=== PATIENT | female | born 1985 | race Caucasian/White ===

== ENCOUNTER 2017-07-14 14:27 | Inpatient (IN) | payer MEDICAID ==
--- NOTE | 2017-07-14 17:30 | ED Physician Chart ---
ED Chief Complaint/HPI - Patient Information Date Seen:: 07/14/17 Chief Complaint:: had baby now abdominal pain Allergies:: Allergies Allergy/AdvReac Type Severity Reaction Status Date / Time quetiapine [From Seroquel] Allergy Verified 07/14/17 14:40 Vitals:: Vital Signs - 8 hr 07/14/17 14:41 Temp 98.6 F HR 91 RR 17 BP 133/81 O2 Sat % 96 Review:: Nurse's Note Reviewed <Kali Pereyra - Last Filed: 07/14/17 17:43> - Patient Information Allergies:: Allergies Allergy/AdvReac Type Severity Reaction Status Date / Time quetiapine [From Seroquel] Allergy Verified 07/14/17 14:40 Vitals:: Vital Signs - 8 hr 07/14/17 14:41 Temp 98.6 F HR 91 RR 17 BP 133/81 O2 Sat % 96 <Tremaine Darling - Last Filed: 07/14/17 22:10> ED Review of Systems - Review of Systems General/Constitutional: No fever <Kali Pereyra - Last Filed: 07/14/17 17:43> ED Past Medical History - Past Medical History Obtainable: No <Kali Pereyra - Last Filed: 07/14/17 17:43> ED Physical Exam - Physical Examination General/Constitutional: Alert, Non-toxic appearing Head: Atraumatic Eyes: Lids, conjuctiva normal Skin: Nl inspection ENMT: External ears, nose nl Neck: Nontender Respiratory: Nl effort/Exclusion Cardio Vascular: RRR GI: No tenderness/rebounding/guarding : No CVA tenderness Extremities: No tenderness or effusion Misc: Normal back <Kali Pereyra - Last Filed: 07/14/17 17:43> ED Labs/Radiology/EKG Results - Lab Results Results: Laboratory Tests 07/14/17 07/14/17 07/14/17 15:00 17:31 17:31 WBC 16.1 H RBC 4.66 Hgb 13.2 Hct 39.3 L MCV 84.5 MCH 28.3 MCHC Differential 33.5 RDW 13.3 Plt Count 486 H MPV 6.6 Neutrophils % 83.1 H Lymphocytes % 9.4 L Monocytes % 6.2 Eosinophils % 1.3 Basophils % 0.0 Sodium 136 Potassium 4.0 Chloride 104 Carbon Dioxide 26.6 Anion Gap 9.4 BUN 18 Creatinine 0.6 Est GFR ( Amer) > 60.0 Est GFR (Non-Af Amer) > 60.0 BUN/Creatinine Ratio 30.0 Glucose 85 Whole Bld Lactic Acid Calcium 8.3 L Total Bilirubin Direct Bilirubin AST ALT Alkaline Phosphatase Total Protein Albumin Globulin Albumin/Globulin Ratio Amylase Lipase Urine Test NEGATIVE 07/14/17 07/14/17 07/14/17 17:31 17:31 17:46 WBC RBC Hgb Hct MCV MCH MCHC Differential RDW Plt Count MPV Neutrophils % Lymphocytes % Monocytes % Eosinophils % Basophils % Sodium Potassium Chloride Carbon Dioxide Anion Gap BUN Creatinine Est GFR ( Amer) Est GFR (Non-Af Amer) BUN/Creatinine Ratio Glucose Whole Bld Lactic Acid 1.02 Calcium Total Bilirubin 0.3 Direct Bilirubin 0.04 AST 12 L ALT 9 Alkaline Phosphatase 82 Total Protein 5.6 L Albumin 3.3 L Globulin 2.3 Albumin/Globulin Ratio 1.4 Amylase 43 Lipase 27 Urine Test - Radiology Results Results: CT abdomen: distended stomach, diffuse distended bowel loops with areas of bowel wall thickening, favor infectious/inflammatory process <Tremaien Darling - Last Filed: 07/14/17 22:10> ED Assessment - Assessment General Assessment: Gastritis with possible small bowel obstruction Leukocytosis day 10 Critical Care Time: 45 min Excludes all billable procedures: Yes This condition life threatening/high prob of deterioration: No Assessment/Comments:: CT abdomen: distended stomach, diffuse distended bowel loops with areas of bowel wall thickening, favor infectious/inflammatory process Goldie Martinez Admit to med surg <Tremaine Darling - Last Filed: 07/14/17 22:10> ED Septic Shock - . Is Septic Shock (SBP<90, OR Lactate>4 mmol\L) present?: No - <6hrs of presentation: Vital Signs: Vital Signs - 8 hr 07/14/17 14:41 Temp 98.6 F HR 91 RR 17 BP 133/81 O2 Sat % 96 <Kali Pereyra - Last Filed: 07/14/17 17:43> - . Is Septic Shock (SBP<90, OR Lactate>4 mmol\L) present?: No - <6hrs of presentation: Vital Signs: Vital Signs - 8 hr 12/25/17 14:41 Temp 98.6 F HR 91 RR 17 BP 133/81 O2 Sat % 96 <Tremaine Darling - Last Filed: 07/14/17 22:10> ED Reassessment (Disposition) - Reassessment Reassessment Condition:: Improved - Patient Disposition Discharge/Transfer:: Acute Care w/in this hosp Admitting Medical Physician:: Miranda Shelton <Tremaine Darling - Last Filed: 07/14/17 22:10>
[2017-07-14 17:38] LABS: % EOSINOPHILS 1.3 % (0.0-5.0); % LYMPHOCYTES 9.4 % (20.0-50.0); % MONOCYTES 6.2 % (2.0-10.0); % NEUTROPHILS 83.1 % (40.0-80.0); EOSINOPHILE ABSOLUTE 0.2 Th/cmm (0.1-0.4); HEMATOCRIT 39.3 % (41.0-60); HEMOGLOBIN 13.2 gm/dL (12-16); LYMPHOCYTE ABSOLUTE 1.5 Th/cmm (1.5-3.0); MEAN CELL VOLUME 84.5 fl (81-100); MEAN CORPUSCULAR HEMOGLOBIN 28.3 pg (27.0-31.0); MEAN CORPUSCULAR HGB CONC 33.5 pg (28.0-36.0); MEAN PLATELET VOLUME 6.6 fl; NEUTROPHILE ABSOLUTE 13.4 Th/cmm (1.8-8.0); PLATELET COUNT 486 Th/cmm (150-400); RED BLOOD COUNT 4.66 Mil/cmm (3.80-5.10); RED CELL DISTRIBUTION WIDTH 13.3 % (11.5-20.0)
[2017-07-14 17:43] LABS: WHITE BLOOD COUNT 16.1 Th/cmm (4.8-10.8)
[2017-07-14 17:51] LABS: ANION GAP 9.4 (7.0-16.0); BUN - UREA NITROGEN 18 mg/dL (7-25); CALCIUM SERUM 8.3 mg/dL (8.6-10.3); CARBON DIOXIDE 26.6 mEq/L (21.0-31.0); CHLORIDE 104 mEq/L (98-107); CREATININE - SERUM 0.6 mg/dL (0.6-1.2); GFR AFRICAN-AMERICAN > 60.0 ml/min (>90); GFR NON AFRICAN-AMERICAN > 60.0 ml/min; GLUCOSE 85 mg/dL (70-105); SODIUM SERUM 136 mEq/L (136-145)
[2017-07-14] MEDS ORDERED: Sodium Chloride 0.9% 1,000 ML IV ONE (20:11)
[2017-07-14 20:15] LABS: AMYLASE SERUM 43 U/L (29-103); LIPASE 27 U/L (11-82)
[2017-07-14 20:19] LABS: ALB/GLOB RATIO 1.4 (1.0-1.8); ALBUMIN 3.3 gm/dL (3.7-5.3); BILIRUBIN,TOTAL 0.3 mg/dL (0.3-1.0); TOTAL PROTEIN,SERUM 5.6 gm/dL (6.0-8.3)
[2017-07-14 20:24] LABS: BILIRUBIN,DIRECT 0.04 mg/dL (0.0-0.2)
[2017-07-14] MEDS ORDERED: cefTRIAXone 1 GM in Sodium Chloride 0.9% 50 ML IV ONE (20:52)
[2017-07-14] MEDS ORDERED: Piperacillin Sodium/Tazobact 3.375 gm Vial IV ONE (20:56)
[2017-07-14] MEDS ORDERED: Levofloxacin 750mg/150mL 750 MG/150 ML BAG IV ONE (23:52)
[2017-07-14] MEDS ORDERED: D5-0.45NS w/20 mEq KCL 1,000 ML IV ONE (23:56)
[2017-07-15] MEDS: D5-0.45NS w/20 mEq KCL 1,000 ML IV SCH ×2 (00:04→15:15)
[2017-07-15] MEDS: Levofloxacin 750mg/150mL 750 MG/150 ML BAG IV SCH (00:05)
[2017-07-15] MEDS: metroNIDAZOLE 500mg/NS 100mL 500 MG/100 ML BAG IV SCH ×4 (00:21→20:51)
[2017-07-15 06:22] LABS: % BASOPHILS 0.4 % (0.0-2.0); % EOSINOPHILS 0.6 % (0.0-5.0); % MONOCYTES 8.3 % (2.0-10.0); % NEUTROPHILS 77.7 % (40.0-80.0); EOSINOPHILE ABSOLUTE 0.1 Th/cmm (0.1-0.4); HEMATOCRIT 37.1 % (41.0-60); HEMOGLOBIN 12.4 gm/dL (12-16); LYMPHOCYTE ABSOLUTE 1.5 Th/cmm (1.5-3.0); MEAN CELL VOLUME 84.8 fl (81-100); MEAN CORPUSCULAR HEMOGLOBIN 28.3 pg (27.0-31.0); MEAN CORPUSCULAR HGB CONC 33.4 pg (28.0-36.0); MEAN PLATELET VOLUME 7.2 fl; MONOCYTE ABSOLUTE 0.9 Th/cmm (0.3-1.0); NEUTROPHILE ABSOLUTE 8.7 Th/cmm (1.8-8.0); PLATELET COUNT 432 Th/cmm (150-400); RED BLOOD COUNT 4.37 Mil/cmm (3.80-5.10); RED CELL DISTRIBUTION WIDTH 13.2 % (11.5-20.0)
[2017-07-15 06:23] LABS: WHITE BLOOD COUNT 11.2 Th/cmm (4.8-10.8)
[2017-07-15 06:38] LABS: ALB/GLOB RATIO 1.2 (1.0-1.8); ALBUMIN 2.7 gm/dL (3.7-5.3); ALKALINE PHOSPHATASE 64 U/L (34-104); BILIRUBIN,TOTAL 0.3 mg/dL (0.3-1.0); BUN - UREA NITROGEN 16 mg/dL (7-25); CALCIUM SERUM 7.1 mg/dL (8.6-10.3); CARBON DIOXIDE 20.8 mEq/L (21.0-31.0); CHLORIDE 107 mEq/L (98-107); CREATININE - SERUM 0.6 mg/dL (0.6-1.2); GFR AFRICAN-AMERICAN > 60.0 ml/min (>90); GFR NON AFRICAN-AMERICAN > 60.0 ml/min; GLUCOSE 84 mg/dL (70-105); MAGNESIUM 1.5 mg/dL (1.9-2.7); POTASSIUM SERUM 3.8 mEq/L (3.5-5.1); SGOT 10 U/L (13-39); SGPT/ALT 7 U/L (7-52); SODIUM SERUM 135 mEq/L (136-145); TOTAL PROTEIN,SERUM 4.9 gm/dL (6.0-8.3)
--- NOTE | 2017-07-15 08:31 | Diagnostic Imaging Report ---
Exam: Acute abdominal series. HISTORY: Free air. Findings: Multiple views of the abdomen reviewed. The study demonstrates nonspecific bowel gas pattern. Bony structures intact. No abnormal masses or calcifications are noted. No acute pulmonic is trace appreciated. The decubitus examination of the abdomen fail to demonstrate free air collection. The study was correlated with the CT examination the abdomen at 07/14/2017 which also demonstrated no evidence of free air collection. IMPRESSION: Essentially unremarkable examination of the abdomen
--- NOTE | 2017-07-15 08:58 | General Progress Note ---
Subjective - Review of Systems Service Date: 07/15/17 Events since last encounter: had vaginal delivery first baby 10 days ago at [facility] abdominal pain, generalilzed labs noted abdominal xray: not remarkable clear liquids, GB ultrasound Objective - Results Result Diagrams: 07/15/17 05:39 07/15/17 05:39 Recent Labs: Laboratory Last Values WBC 11.2 Th/cmm (4.8-10.8) H D 07/15/17 05:39 RBC 4.37 Mil/cmm (3.80-5.10) 07/15/17 05:39 Hgb 12.4 gm/dL (12-16) 07/15/17 05:39 Hct 37.1 % (41.0-60) L 07/15/17 05:39 MCV 84.8 fl (81-100) 07/15/17 05:39 MCH 28.3 pg (27.0-31.0) 07/15/17 05:39 MCHC Differential 33.4 pg (28.0-36.0) 07/15/17 05:39 RDW 13.2 % (11.5-20.0) 07/15/17 05:39 Plt Count 432 Th/cmm (150-400) H 07/15/17 05:39 MPV 7.2 fl 07/15/17 05:39 Neutrophils % 77.7 % (40.0-80.0) 07/15/17 05:39 Lymphocytes % 13.0 % (20.0-50.0) L 07/15/17 05:39 Monocytes % 8.3 % (2.0-10.0) 07/15/17 05:39 Eosinophils % 0.6 % (0.0-5.0) 07/15/17 05:39 Basophils % 0.4 % (0.0-2.0) 07/15/17 05:39 Sodium 135 mEq/L (136-145) L 07/15/17 05:39 Potassium 3.8 mEq/L (3.5-5.1) 07/15/17 05:39 Chloride 107 mEq/L (98-107) 07/15/17 05:39 Carbon Dioxide 20.8 mEq/L (21.0-31.0) L 07/15/17 05:39 Anion Gap 11.0 (7.0-16.0) 07/15/17 05:39 BUN 16 mg/dL (7-25) 07/15/17 05:39 Creatinine 0.6 mg/dL (0.6-1.2) 07/15/17 05:39 Est GFR ( Amer) > 60.0 ml/min (>90) 07/15/17 05:39 Est GFR (Non-Af Amer) > 60.0 ml/min 07/15/17 05:39 BUN/Creatinine Ratio 26.7 07/15/17 05:39 Glucose 84 mg/dL (70-105) 07/15/17 05:39 Whole Bld Lactic Acid 1.02 mmol/L (0.60-1.99) 07/14/17 17:31 Calcium 7.1 mg/dL (8.6-10.3) L 07/15/17 05:39 Magnesium 1.5 mg/dL (1.9-2.7) L 07/15/17 05:39 Total Bilirubin 0.3 mg/dL (0.3-1.0) 07/15/17 05:39 Direct Bilirubin 0.04 mg/dL (0.0-0.2) 07/14/17 17:31 AST 10 U/L (13-39) L 07/15/17 05:39 ALT 7 U/L (7-52) 07/15/17 05:39 Alkaline Phosphatase 64 U/L (34-104) 07/15/17 05:39 Total Protein 4.9 gm/dL (6.0-8.3) L 07/15/17 05:39 Albumin 2.7 gm/dL (3.7-5.3) L 07/15/17 05:39 Globulin 2.2 gm/dL 07/15/17 05:39 Albumin/Globulin Ratio 1.2 (1.0-1.8) 07/15/17 05:39 Amylase 43 U/L (29-103) 07/14/17 17:46 Lipase 27 U/L (11-82) 07/14/17 17:46 Urine Test NEGATIVE 07/14/17 15:00 - Physical Exam Vitals and I&O: Vital Signs Temp 98.7 F 07/15/17 07:56 Pulse 84 07/15/17 07:56 Resp 16 07/15/17 07:56 BP 103/68 07/15/17 07:56 Pulse Ox 100 07/15/17 07:56 Intake & Output 07/14/17 07/15/17 07/15/17 18:59 06:59 18:59 Intake Total 250 Output Total 300 Balance -50 Weight (lbs) 87.09 kg Intake: Intake, IV Amount 250 Levofloxacin 750mg/150mL 150 750 mg In 150 ml @ 100 mls/hr IV Q24HR [facility] Rx#: [id number] metroNIDAZOLE 500mg/NS 100 100mL 500 mg In 100 ml @ 100 mls/hr IV Q8HR [facility] Rx #:[id number] Output: Urine 300 Other: Stool Characteristics Soft Brown Active Medications: Current Medications Potassium Chloride/Dextrose/Sod Cl (D5-0.45ns W/20 Meq Kcl) 1,000 mls @ 125 mls /hr IV .Q8H [facility] Stop: 09/12/17 23:32 Last Admin: 07/15/17 00:04 Dose: 125 mls/hr Levofloxacin (Levaquin Pb) 750 mg in 150 mls @ 100 mls/hr IV Q24HR [facility] Stop: 09/13/17 00:29 Last Infusion: 07/15/17 01:35 Dose: Infused Metronidazole (Flagyl) 500 mg in 100 mls @ 100 mls/hr IV Q8HR [facility] Stop: 09/13/17 00:00 Last Admin: 07/15/17 05:56 Dose: 100 mls/hr Ondansetron HCl (Zofran) 4 mg IV Q4HR PRN PRN Reason: Nausea / Vomiting Stop: 09/12/17 23:32 Pantoprazole Sodium (Protonix) 40 mg IVP DAILY [facility] Stop: 09/13/17 08:59 Assessment/Plan - Problem List Patient Problems: All Active Problems EPIGASTRIC PAIN WITH NAUSEA/DIARRHEA (Acute)
--- NOTE | 2017-07-15 09:17 | Diagnostic Imaging Report ---
Exam: CT examination of the abdomen pelvis. HISTORY: Abdominal pain. Total DLP equals 750 CTDI equals 14.1. Findings: Multiple contiguous thin section of the abdomen pelvis obtained from lower thorax to pubic symphysis without the administration of intravenous or oral contrast material the study therefore is somewhat limited. The study demonstrates normal aeration of lung parenchyma the bases. The liver and spleen are normal. The stomach excrete distended with food content. The kidneys demonstrate no evidence of obstructive uropathy or nephrolithiasis. The spleen is intact. The visualized pancreas is normal. No free fluid is noted. There is evidence for distention small bowel loops with the fluid consistent with ileus inflammatory process cannot be excluded The appendix is not seen. There is evidence of for prominent uterus most likely due to fibroid infiltration, ultrasound summation of pelvis is recommended The urinary bladder is intact. Bony structures demonstrate no evidence for lytic or blastic changes. IMPRESSION: 1. Severely distended stomach with food content. 2. Distention small bowel loops with fluid most likely ileus with inspiratory process cannot be excluded 3. Markedly enlarged uterus question fibroid infiltration.
--- NOTE | 2017-07-15 10:19 | Diagnostic Imaging Report ---
Ultrasound abdomen, Limited History: Abdominal pain, rule out gallstones Comparison: CT abdomen and pelvis on 07/14/2017 Technique/procedure: Sonography right upper quadrant was performed. Multiple gallstones are noted. The gallbladder wall is borderline prominent. The gallbladder is distended. The common bile the measures 4 mm. No pericholecystic fluid. IMPRESSION: Distended gallbladder with multiple gallstones. The gallbladder wall is borderline prominent. Please correlate clinically. If indicated, a nuclear medicine HIDA scan may be obtained for further assessment.
[2017-07-15] MEDS ORDERED: Mag Sulfate 2gm/50mL Premix 2 GM/50 ML BAG IV ONE (10:27)
--- NOTE | 2017-07-15 11:06 | History & Physical ---
ADMIT DATE: 07/15/2017 CHIEF COMPLAINT: Severe abdominal pain, nausea and vomiting. HISTORY OF PRESENT ILLNESS: The patient is a 32-year-old female who presented to the Emergency Room with intractable nausea, vomiting, abdominal pain for 1 day duration. The patient evaluated by the ER physician. Initial workup significant for acute gastroenteritis, possible small-bowel obstruction. The patient admitted to the medical floor, started on IV fluid, antibiotic. Dr. Anaya consulted on the case. Today, the patient feels better, less abdominal pain, no nausea, no vomiting. Still no bowel movement. The patient was seen by Dr. Anaya and advanced diet to clear liquid diet. PAST MEDICAL HISTORY: Negative. PAST SURGICAL HISTORY: Negative. ALLERGIES: None. MEDICATIONS: None. SOCIAL HISTORY: No smoking, no alcohol, no drugs. FAMILY HISTORY: Noncontributory. REVIEW OF SYSTEMS: RENAL SYSTEM: No history of chronic renal disorder. CARDIOVASCULAR SYSTEM: No coronary artery disease. ENDOCRINE SYSTEM: No diabetes or thyroid problem. GASTROINTESTINAL SYSTEM: No upper or lower gastrointestinal bleed. NEUROLOGICAL SYSTEM: No seizure disorder. MUSCULOSKELETAL SYSTEM: No muscular dystrophy. HEMATOLOGIC: No bleeding tendencies. RESPIRATORY SYSTEM: No asthma. GENITOURINARY: She had a baby 10 days ago, normal vaginal delivery. PHYSICAL EXAMINATION: GENERAL: She is awake, alert, oriented, not in pain or distress. VITAL SIGNS: Temperature is 98.7, heart rate 84, blood pressure 103/68. HEENT: Normocephalic. Pupils reactive to light and accommodation. Sclerae clear. NECK: Supple. Negative for lymphadenopathy, JVD or bruit. CHEST: Entry of air bilaterally normal. No rhonchi or wheezing. HEART: S1, S2 normal, no gallop rhythm. ABDOMEN: Soft, mild tenderness, rebound negative. Bowel sounds positive. EXTREMITIES: No edema. NEUROLOGICAL: She is awake, alert, oriented. No focal motor or sensory deficits. Cranial nerves 2-12 are intact. LABORATORY DATA: White blood cell 11.2, hemoglobin 12.4, hematocrit 37.1, platelet is 432. Sodium 135, potassium 3.7, BUN 16, creatinine 0.6, magnesium 1.5, albumin 2.7. ASSESSMENT: 1. Acute gastroenteritis. 2. Hypomagnesemia. 3. Mild malnutrition. 4. Status post . PLAN: The patient will continue on IV antibiotic, IV fluid, clear liquid diet. Magnesium 2 grams IV piggyback. CBC, CMP for tomorrow. Diet advanced to clear liquid. [facility]# [id number]
--- NOTE | 2017-07-15 21:07 | Consultation ---
DATE OF CONSULTATION: 07/15/2017 REASON FOR CONSULTATION: Nausea, vomiting, diarrhea, and abdominal pain. HISTORY OF PRESENT ILLNESS: This consult was obtained through the courtesy of Dr. Shelton for this 32-year-old with insignificant past medical history, who presented to the hospital because of severe abdominal pain, nausea, vomiting, diarrhea that started yesterday. The patient denies having any previous episodes like this. She suddenly got sick yesterday having abdominal pain. When she came to the hospital, she started vomiting and having diarrhea. The patient denies any hematemesis or melena. She has seen some blood in the past because of constipation. She just gave 10 days ago. PAST MEDICAL HISTORY: Negative. PAST SURGICAL HISTORY: Negative. SOCIAL HISTORY: Smokes 4 cigarettes a day, nonalcoholic. She has used drugs in the past in high school and according to her, she has been checked for hepatitis C and she is negative. FAMILY HISTORY: Negative. Grandmother had some bone marrow cancer. MEDICATIONS: None. ALLERGIES: None. REVIEW OF SYSTEMS: No weight loss, no hematemesis or melena. PHYSICAL EXAMINATION: GENERAL: The patient is awake, oriented to self, place, and time, in no acute distress. VITAL SIGNS: Blood pressure is 123/78, heart rate is 85, respiratory rate 17, temperature is 98.8. HEAD AND NECK: Pupils reactive to light and accommodation. Extraocular muscles are intact. Sclerae are anicteric. Conjunctivae not pale. Oral cavity, no lesion. NECK: Supple, no jugular venous distention, no carotid lymph node. CHEST: Good respiratory movements. LUNGS: Clear to auscultation. CARDIOVASCULAR SYSTEM: Regular rate and rhythm. No murmur or gallop. ABDOMEN: Soft. Positive bowel sounds. Mild epigastric tenderness. EXTREMITIES: No edema. CENTRAL NERVOUS SYSTEM: Nonfocal. LABORATORY DATA: White count was 16.1, now is 11.2. H and H are normal except hematocrit 37.1, slightly low. Platelets are normal. Chemistry showed normal liver function tests. Lipase was normal as well. CAT scan showed distended stomach with food and distended small bowel loops. IMPRESSION: A 32-year-old presented with abdominal pain, nausea, vomiting, diarrhea. ASSESSMENT AND PLAN: Abdominal pain, nausea, vomiting, diarrhea. This picture is consistent with gastroenteritis, most possibly some ileus with some gastroparesis or delayed gastric emptying related to that. At this time, the patient is clinically asymptomatic and she is tolerating clear liquid diet. We will give a full liquid diet and watch her. If she does better, then we will advance diet even more; if not, then we will do an endoscopy. Meanwhile, continue her antibiotics and will do stool analysis for O and P, C and S, white blood cells, C. diff, etc. Thank you Dr. Shelton for allowing me to participate in the care of this patient. If you have any further questions, please let me know. JOB# [id number]
[2017-07-16] MEDS: Levofloxacin 750mg/150mL 750 MG/150 ML BAG IV SCH (00:04)
[2017-07-16] MEDS: metroNIDAZOLE 500mg/NS 100mL 500 MG/100 ML BAG IV SCH ×3 (04:38→20:33)
[2017-07-16 05:23] LABS: % BASOPHILS 0.3 % (0.0-2.0); % EOSINOPHILS 2.6 % (0.0-5.0); % LYMPHOCYTES 25.3 % (20.0-50.0); % NEUTROPHILS 60.8 % (40.0-80.0); EOSINOPHILE ABSOLUTE 0.2 Th/cmm (0.1-0.4); HEMATOCRIT 36.6 % (41.0-60); HEMOGLOBIN 12.2 gm/dL (12-16); LYMPHOCYTE ABSOLUTE 2.1 Th/cmm (1.5-3.0); MEAN CORPUSCULAR HEMOGLOBIN 28.3 pg (27.0-31.0); MEAN CORPUSCULAR HGB CONC 33.3 pg (28.0-36.0); MONOCYTE ABSOLUTE 0.9 Th/cmm (0.3-1.0); NEUTROPHILE ABSOLUTE 5.1 Th/cmm (1.8-8.0); PLATELET COUNT 378 Th/cmm (150-400); RED CELL DISTRIBUTION WIDTH 13.4 % (11.5-20.0)
[2017-07-16 05:30] LABS: WHITE BLOOD COUNT 8.3 Th/cmm (4.8-10.8)
[2017-07-16 05:41] LABS: ALB/GLOB RATIO 1.4 (1.0-1.8); ALKALINE PHOSPHATASE 70 U/L (34-104); ANION GAP 10.3 (7.0-16.0); BILIRUBIN,TOTAL 0.2 mg/dL (0.3-1.0); BUN - UREA NITROGEN 10 mg/dL (7-25); CALCIUM SERUM 7.8 mg/dL (8.6-10.3); CARBON DIOXIDE 21.1 mEq/L (21.0-31.0); CHLORIDE 109 mEq/L (98-107); CREATININE - SERUM 0.6 mg/dL (0.6-1.2); GFR AFRICAN-AMERICAN > 60.0 ml/min (>90); GFR NON AFRICAN-AMERICAN > 60.0 ml/min; GLUCOSE 91 mg/dL (70-105); POTASSIUM SERUM 4.4 mEq/L (3.5-5.1); SGOT 11 U/L (13-39); SGPT/ALT 7 U/L (7-52); SODIUM SERUM 136 mEq/L (136-145); TOTAL PROTEIN,SERUM 5.2 gm/dL (6.0-8.3)
--- NOTE | 2017-07-16 08:51 | General Progress Note ---
Subjective - Review of Systems Service Date: 07/17/17 Events since last encounter: has GB stones wants to go home and take care of baby for now may DC on low fat diet Objective - Results Result Diagrams: 07/16/17 05:00 07/16/17 05:00 Recent Labs: Laboratory Last Values WBC 8.3 Th/cmm (4.8-10.8) D 07/16/17 05:00 RBC 4.30 Mil/cmm (3.80-5.10) 07/16/17 05:00 Hgb 12.2 gm/dL (12-16) 07/16/17 05:00 Hct 36.6 % (41.0-60) L 07/16/17 05:00 MCV 85.0 fl (81-100) 07/16/17 05:00 MCH 28.3 pg (27.0-31.0) 07/16/17 05:00 MCHC Differential 33.3 pg (28.0-36.0) 07/16/17 05:00 RDW 13.4 % (11.5-20.0) 07/16/17 05:00 Plt Count 378 Th/cmm (150-400) 07/16/17 05:00 MPV 7.0 fl 07/16/17 05:00 Neutrophils % 60.8 % (40.0-80.0) 07/16/17 05:00 Lymphocytes % 25.3 % (20.0-50.0) 07/16/17 05:00 Monocytes % 11.0 % (2.0-10.0) H 07/16/17 05:00 Eosinophils % 2.6 % (0.0-5.0) 07/16/17 05:00 Basophils % 0.3 % (0.0-2.0) 07/16/17 05:00 Sodium 136 mEq/L (136-145) 07/16/17 05:00 Potassium 4.4 mEq/L (3.5-5.1) 07/16/17 05:00 Chloride 109 mEq/L (98-107) H 07/16/17 05:00 Carbon Dioxide 21.1 mEq/L (21.0-31.0) 07/16/17 05:00 Anion Gap 10.3 (7.0-16.0) 07/16/17 05:00 BUN 10 mg/dL (7-25) 07/16/17 05:00 Creatinine 0.6 mg/dL (0.6-1.2) 07/16/17 05:00 Est GFR ( Amer) > 60.0 ml/min (>90) 07/16/17 05:00 Est GFR (Non-Af Amer) > 60.0 ml/min 07/16/17 05:00 BUN/Creatinine Ratio 16.7 07/16/17 05:00 Glucose 91 mg/dL (70-105) 07/16/17 05:00 Whole Bld Lactic Acid 1.02 mmol/L (0.60-1.99) 07/14/17 17:31 Calcium 7.8 mg/dL (8.6-10.3) L 07/16/17 05:00 Magnesium 1.5 mg/dL (1.9-2.7) L 07/15/17 05:39 Total Bilirubin 0.2 mg/dL (0.3-1.0) L 07/16/17 05:00 Direct Bilirubin 0.04 mg/dL (0.0-0.2) 07/14/17 17:31 AST 11 U/L (13-39) L 07/16/17 05:00 ALT 7 U/L (7-52) 07/16/17 05:00 Alkaline Phosphatase 70 U/L (34-104) 07/16/17 05:00 Total Protein 5.2 gm/dL (6.0-8.3) L 07/16/17 05:00 Albumin 3.0 gm/dL (3.7-5.3) L 07/16/17 05:00 Globulin 2.2 gm/dL 07/16/17 05:00 Albumin/Globulin Ratio 1.4 (1.0-1.8) 07/16/17 05:00 Amylase 43 U/L (29-103) 07/14/17 17:46 Lipase 27 U/L (11-82) 07/14/17 17:46 Urine Test NEGATIVE 07/14/17 15:00 - Physical Exam Vitals and I&O: Vital Signs Temp 98.4 F 07/16/17 07:44 Pulse 62 07/16/17 07:44 Resp 18 07/16/17 07:44 BP 142/95 07/16/17 07:44 Pulse Ox 100 07/16/17 07:44 Intake & Output 07/15/17 07/16/17 07/16/17 18:59 06:59 18:59 Intake Total 1100 1100 Balance 1100 1100 Intake: Intake, IV Amount 1100 1100 D5-0.45NS w/20 mEq KCL 1, 1000 1000 000 ml @ 125 mls/hr IV . Q8H [facility] Rx#:[id number] metroNIDAZOLE 500mg/NS 100 100 100mL 500 mg In 100 ml @ 100 mls/hr IV Q8HR [facility] Rx #:[id number] Other: Stool Characteristics Soft Soft Brown Brown Active Medications: Current Medications Potassium Chloride/Dextrose/Sod Cl (D5-0.45ns W/20 Meq Kcl) 1,000 mls @ 125 mls /hr IV .Q8H [facility] Stop: 09/12/17 23:32 Last Admin: 07/16/17 00:00 Dose: 125 mls/hr Levofloxacin (Levaquin Pb) 750 mg in 150 mls @ 100 mls/hr IV Q24HR [facility] Stop: 09/13/17 00:29 Last Admin: 07/16/17 00:04 Dose: 100 mls/hr Metronidazole (Flagyl) 500 mg in 100 mls @ 100 mls/hr IV Q8HR [facility] Stop: 09/13/17 00:00 Last Admin: 07/16/17 04:38 Dose: 100 mls/hr Ondansetron HCl (Zofran) 4 mg IV Q4HR PRN PRN Reason: Nausea / Vomiting Stop: 09/12/17 23:32 Pantoprazole Sodium (Protonix) 40 mg IVP DAILY [facility] Stop: 09/13/17 08:59 Last Admin: 07/15/17 15:00 Dose: 40 mg Assessment/Plan - Problem List Patient Problems: All Active Problems EPIGASTRIC PAIN WITH NAUSEA/DIARRHEA (Acute)
[2017-07-16] MEDS: D5-0.45NS w/20 mEq KCL 1,000 ML IV SCH ×4 (08:52→20:32)
--- NOTE | 2017-07-16 15:06 | History & Physical ---
ADMIT DATE: 07/14/2017 SURGICAL CONSULTATION REFERRING PHYSICIAN: Dr. Shelton. REASON FOR CONSULTATION: Abdominal pain. Thank you for referring this patient to me. This is a 32-year-old female who came into the Emergency Room because of severe abdominal pain with nausea and vomiting. She underwent CT scan of the abdomen, which showed markedly distended stomach. LABORATORY STUDIES: Show WBC at 16,100 with liver function test to be within normal limits. She just had a baby 10 days ago and was delivered vaginally. PHYSICAL EXAMINATION: Now there is tenderness in the right upper quadrant and epigastric area. The patient has a lot of fat pad as consistent with recent . RECOMMENDATION: Gallbladder ultrasound will be done to rule out gallstones. [facility]# [id number]
--- NOTE | 2017-07-16 18:17 | Internal Medicine Prog Note ---
Internal Medicine Subjective - Subjective Service Date: 07/16/17 Patient seen and examined:: without staff (SHE FEELS BETTER,LESS ABDOMINAL PAIN. ) Patient is:: awake, verbal, in bed, talking Per staff patient has:: no adverse event Internal Medicine Objective - Results Result Diagrams: 07/16/17 05:00 07/16/17 05:00 Recent Labs: Laboratory Last Values WBC 8.3 Th/cmm (4.8-10.8) D 07/16/17 05:00 RBC 4.30 Mil/cmm (3.80-5.10) 07/16/17 05:00 Hgb 12.2 gm/dL (12-16) 07/16/17 05:00 Hct 36.6 % (41.0-60) L 07/16/17 05:00 MCV 85.0 fl (81-100) 07/16/17 05:00 MCH 28.3 pg (27.0-31.0) 07/16/17 05:00 MCHC Differential 33.3 pg (28.0-36.0) 07/16/17 05:00 RDW 13.4 % (11.5-20.0) 07/16/17 05:00 Plt Count 378 Th/cmm (150-400) 07/16/17 05:00 MPV 7.0 fl 07/16/17 05:00 Neutrophils % 60.8 % (40.0-80.0) 07/16/17 05:00 Lymphocytes % 25.3 % (20.0-50.0) 07/16/17 05:00 Monocytes % 11.0 % (2.0-10.0) H 07/16/17 05:00 Eosinophils % 2.6 % (0.0-5.0) 07/16/17 05:00 Basophils % 0.3 % (0.0-2.0) 07/16/17 05:00 Sodium 136 mEq/L (136-145) 07/16/17 05:00 Potassium 4.4 mEq/L (3.5-5.1) 07/16/17 05:00 Chloride 109 mEq/L (98-107) H 07/16/17 05:00 Carbon Dioxide 21.1 mEq/L (21.0-31.0) 07/16/17 05:00 Anion Gap 10.3 (7.0-16.0) 07/16/17 05:00 BUN 10 mg/dL (7-25) 07/16/17 05:00 Creatinine 0.6 mg/dL (0.6-1.2) 07/16/17 05:00 Est GFR ( Amer) > 60.0 ml/min (>90) 07/16/17 05:00 Est GFR (Non-Af Amer) > 60.0 ml/min 07/16/17 05:00 BUN/Creatinine Ratio 16.7 07/16/17 05:00 Glucose 91 mg/dL (70-105) 07/16/17 05:00 Whole Bld Lactic Acid 1.02 mmol/L (0.60-1.99) 07/14/17 17:31 Calcium 7.8 mg/dL (8.6-10.3) L 07/16/17 05:00 Magnesium 1.5 mg/dL (1.9-2.7) L 07/15/17 05:39 Total Bilirubin 0.2 mg/dL (0.3-1.0) L 07/16/17 05:00 Direct Bilirubin 0.04 mg/dL (0.0-0.2) 07/14/17 17:31 AST 11 U/L (13-39) L 07/16/17 05:00 ALT 7 U/L (7-52) 07/16/17 05:00 Alkaline Phosphatase 70 U/L (34-104) 07/16/17 05:00 Total Protein 5.2 gm/dL (6.0-8.3) L 07/16/17 05:00 Albumin 3.0 gm/dL (3.7-5.3) L 07/16/17 05:00 Globulin 2.2 gm/dL 07/16/17 05:00 Albumin/Globulin Ratio 1.4 (1.0-1.8) 07/16/17 05:00 Amylase 43 U/L (29-103) 07/14/17 17:46 Lipase 27 U/L (11-82) 07/14/17 17:46 Urine Test NEGATIVE 07/14/17 15:00 - Physical Exam Vitals and I&O: Vital Signs Temp 98.4 F 07/16/17 15:00 Pulse 61 07/16/17 15:00 Resp 18 07/16/17 15:00 BP 135/97 07/16/17 15:00 Pulse Ox 98 07/16/17 15:00 Intake & Output 07/15/17 07/16/17 07/16/17 18:59 06:59 18:59 Intake Total 1100 1200 2568.75 Balance 1100 1200 2568.75 Weight (lbs) 87.09 kg Intake: Intake, IV Amount 1100 1200 1768.75 D5-0.45NS w/20 mEq KCL 1, 1000 1000 1668.75 000 ml @ 125 mls/hr IV . Q8H [facility] Rx#:[id number] metroNIDAZOLE 500mg/NS 100 200 100 100mL 500 mg In 100 ml @ 100 mls/hr IV Q8HR [facility] Rx #:[id number] Oral 800 Other: # Voids 4 # Bowel Movements 0 Stool Characteristics Soft Soft Brown Brown Active Medications: Current Medications Potassium Chloride/Dextrose/Sod Cl (D5-0.45ns W/20 Meq Kcl) 1,000 mls @ 125 mls /hr IV .Q8H [facility] Stop: 09/12/17 23:32 Last Admin: 07/16/17 14:13 Dose: 125 mls/hr Levofloxacin (Levaquin Pb) 750 mg in 150 mls @ 100 mls/hr IV Q24HR [facility] Stop: 09/13/17 00:29 Last Admin: 07/16/17 00:04 Dose: 100 mls/hr Metronidazole (Flagyl) 500 mg in 100 mls @ 100 mls/hr IV Q8HR [facility] Stop: 09/13/17 00:00 Last Infusion: 07/16/17 14:46 Dose: Infused Ondansetron HCl (Zofran) 4 mg IV Q4HR PRN PRN Reason: Nausea / Vomiting Stop: 09/12/17 23:32 Pantoprazole Sodium (Protonix) 40 mg IVP DAILY [facility] Stop: 09/13/17 08:59 Last Admin: 07/16/17 08:51 Dose: 40 mg General: alert HEENT: NC/AT, PERRLA, anicteric sclerae, throat clear Neck: No JVD, No thyromegaly, +2 carotid pulse wo bruit, No LAD Lungs: CTAB Cardiovascular: RRR, Normal S1, Normal S2, without murmur Abdomen: non-tender Neurological: no change Internal Medicine Assmt/Plan - Assessment Assessment: 1.ACUTE CHOLECYSTITIS. 2.GRAM NEGATIVE BACTREMIA. - Plan Plan: CONTINUE ON CURRENT MEDICATION AND DIET.CBC AND CHM12 IN AM
[2017-07-17] MEDS: Levofloxacin 750mg/150mL 750 MG/150 ML BAG IV SCH (00:36)
[2017-07-17] MEDS: metroNIDAZOLE 500mg/NS 100mL 500 MG/100 ML BAG IV SCH (04:51)
[2017-07-17 05:57] LABS: % BASOPHILS 0.2 % (0.0-2.0); % EOSINOPHILS 2.6 % (0.0-5.0); % LYMPHOCYTES 23.8 % (20.0-50.0); % MONOCYTES 7.7 % (2.0-10.0); % NEUTROPHILS 65.7 % (40.0-80.0); EOSINOPHILE ABSOLUTE 0.3 Th/cmm (0.1-0.4); HEMOGLOBIN 13.1 gm/dL (12-16); LYMPHOCYTE ABSOLUTE 2.5 Th/cmm (1.5-3.0); MEAN CELL VOLUME 83.8 fl (81-100); MEAN CORPUSCULAR HEMOGLOBIN 28.2 pg (27.0-31.0); MEAN CORPUSCULAR HGB CONC 33.7 pg (28.0-36.0); MEAN PLATELET VOLUME 7.1 fl; MONOCYTE ABSOLUTE 0.8 Th/cmm (0.3-1.0); NEUTROPHILE ABSOLUTE 6.7 Th/cmm (1.8-8.0); PLATELET COUNT 423 Th/cmm (150-400); RED BLOOD COUNT 4.65 Mil/cmm (3.80-5.10); RED CELL DISTRIBUTION WIDTH 13.2 % (11.5-20.0)
[2017-07-17 05:58] LABS: WHITE BLOOD COUNT 10.3 Th/cmm (4.8-10.8)
[2017-07-17 06:27] LABS: ALB/GLOB RATIO 1.2 (1.0-1.8); ALBUMIN 3.2 gm/dL (3.7-5.3); ALKALINE PHOSPHATASE 76 U/L (34-104); ANION GAP 10.9 (7.0-16.0); BILIRUBIN,TOTAL 0.2 mg/dL (0.3-1.0); BUN - UREA NITROGEN 14 mg/dL (7-25); CARBON DIOXIDE 21.6 mEq/L (21.0-31.0); CHLORIDE 106 mEq/L (98-107); CREATININE - SERUM 0.7 mg/dL (0.6-1.2); GFR AFRICAN-AMERICAN > 60.0 ml/min (>90); GFR NON AFRICAN-AMERICAN > 60.0 ml/min; GLUCOSE 97 mg/dL (70-105); POTASSIUM SERUM 4.5 mEq/L (3.5-5.1); SGOT 12 U/L (13-39); SGPT/ALT 7 U/L (7-52); SODIUM SERUM 134 mEq/L (136-145); TOTAL PROTEIN,SERUM 5.8 gm/dL (6.0-8.3)
--- NOTE | 2017-07-17 12:35 | General Progress Note ---
Subjective - Review of Systems Service Date: 07/18/17 Events since last encounter: labs ok for DC Objective - Results Result Diagrams: 07/17/17 05:00 07/17/17 05:00 Recent Labs: Laboratory Last Values WBC 10.3 Th/cmm (4.8-10.8) D 07/17/17 05:00 RBC 4.65 Mil/cmm (3.80-5.10) 07/17/17 05:00 Hgb 13.1 gm/dL (12-16) 07/17/17 05:00 Hct 39.0 % (41.0-60) L 07/17/17 05:00 MCV 83.8 fl (81-100) 07/17/17 05:00 MCH 28.2 pg (27.0-31.0) 07/17/17 05:00 MCHC Differential 33.7 pg (28.0-36.0) 07/17/17 05:00 RDW 13.2 % (11.5-20.0) 07/17/17 05:00 Plt Count 423 Th/cmm (150-400) H 07/17/17 05:00 MPV 7.1 fl 07/17/17 05:00 Neutrophils % 65.7 % (40.0-80.0) 07/17/17 05:00 Lymphocytes % 23.8 % (20.0-50.0) 07/17/17 05:00 Monocytes % 7.7 % (2.0-10.0) 07/17/17 05:00 Eosinophils % 2.6 % (0.0-5.0) 07/17/17 05:00 Basophils % 0.2 % (0.0-2.0) 07/17/17 05:00 Sodium 134 mEq/L (136-145) L 07/17/17 05:00 Potassium 4.5 mEq/L (3.5-5.1) 07/17/17 05:00 Chloride 106 mEq/L (98-107) 07/17/17 05:00 Carbon Dioxide 21.6 mEq/L (21.0-31.0) 07/17/17 05:00 Anion Gap 10.9 (7.0-16.0) 07/17/17 05:00 BUN 14 mg/dL (7-25) 07/17/17 05:00 Creatinine 0.7 mg/dL (0.6-1.2) 07/17/17 05:00 Est GFR ( Amer) > 60.0 ml/min (>90) 07/17/17 05:00 Est GFR (Non-Af Amer) > 60.0 ml/min 07/17/17 05:00 BUN/Creatinine Ratio 20.0 07/17/17 05:00 Glucose 97 mg/dL (70-105) 07/17/17 05:00 Whole Bld Lactic Acid 1.02 mmol/L (0.60-1.99) 07/14/17 17:31 Calcium 8.0 mg/dL (8.6-10.3) L 07/17/17 05:00 Magnesium 1.5 mg/dL (1.9-2.7) L 07/15/17 05:39 Total Bilirubin 0.2 mg/dL (0.3-1.0) L 07/17/17 05:00 Direct Bilirubin 0.04 mg/dL (0.0-0.2) 07/14/17 17:31 AST 12 U/L (13-39) L 07/17/17 05:00 ALT 7 U/L (7-52) 07/17/17 05:00 Alkaline Phosphatase 76 U/L (34-104) 07/17/17 05:00 Total Protein 5.8 gm/dL (6.0-8.3) L 07/17/17 05:00 Albumin 3.2 gm/dL (3.7-5.3) L 07/17/17 05:00 Globulin 2.6 gm/dL 07/17/17 05:00 Albumin/Globulin Ratio 1.2 (1.0-1.8) 07/17/17 05:00 Amylase 43 U/L (29-103) 07/14/17 17:46 Lipase 27 U/L (11-82) 07/14/17 17:46 Urine Test NEGATIVE 07/14/17 15:00 - Physical Exam Vitals and I&O: Vital Signs Temp 98.2 F 07/17/17 04:00 Pulse 82 07/17/17 04:00 Resp 20 07/17/17 04:00 BP 131/92 07/17/17 04:00 Pulse Ox 99 07/17/17 04:00 Intake & Output 07/16/17 07/17/17 07/17/17 18:59 06:59 18:59 Intake Total 3088.75 889.583 Balance 3088.75 889.583 Weight (lbs) 87.09 kg Intake: Intake, IV Amount 1768.75 889.583 D5-0.45NS w/20 mEq KCL 1, 1668.75 789.583 000 ml @ 125 mls/hr IV . Q8H [facility] Rx#:[id number] metroNIDAZOLE 500mg/NS 100 100 100mL 500 mg In 100 ml @ 100 mls/hr IV Q8HR [facility] Rx #:[id number] Oral 1320 Other: # Voids 4 # Bowel Movements 0 Stool Characteristics Soft Formed Active Medications: Current Medications Potassium Chloride/Dextrose/Sod Cl (D5-0.45ns W/20 Meq Kcl) 1,000 mls @ 125 mls /hr IV .Q8H [facility] Stop: 09/12/17 23:32 Last Admin: 07/16/17 20:32 Dose: 125 mls/hr Levofloxacin (Levaquin Pb) 750 mg in 150 mls @ 100 mls/hr IV Q24HR [facility] Stop: 09/13/17 00:29 Last Admin: 07/17/17 00:36 Dose: 100 mls/hr Metronidazole (Flagyl) 500 mg in 100 mls @ 100 mls/hr IV Q8HR [facility] Stop: 09/13/17 00:00 Last Admin: 07/17/17 04:51 Dose: 100 mls/hr Ondansetron HCl (Zofran) 4 mg IV Q4HR PRN PRN Reason: Nausea / Vomiting Stop: 09/12/17 23:32 Pantoprazole Sodium (Protonix) 40 mg IVP DAILY [facility] Stop: 09/13/17 08:59 Last Admin: 07/17/17 08:43 Dose: 40 mg Assessment/Plan - Problem List Patient Problems: All Active Problems EPIGASTRIC PAIN WITH NAUSEA/DIARRHEA (Acute)
== END 2017-07-17 13:40 | disposition left against medical advice (07) | DRG 561 ==
LOC: ER 14:27 → MSI 22:05
PROVIDERS: ADMIT Family Medicine; ATTEND Family Medicine
DX: O99.63 Diseases of the digestive system complicating the puerperium (principal); K80.00 Calculus of gallbladder with acute cholecystitis without obstruction; E83.42 Hypomagnesemia; E44.1 Mild protein-calorie malnutrition; K52.9 Noninfective gastroenteritis and colitis, unspecified; O99.285 Endocrine, nutritional and metabolic diseases complicating the puerperium; O25.3 Malnutrition in the puerperium; O99.335 Smoking (tobacco) complicating the puerperium; F17.210 Nicotine dependence, cigarettes, uncomplicated; Z88.8 Allergy status to other drugs, medicaments and biological substances; Z68.35 Body mass index [BMI] 35.0-35.9, adult; Z80.8 Family history of malignant neoplasm of other organs or systems; Z59.0 Homelessness
CPT/HCPCS: 36415-UA; 74020-TC; 76705-TC; 80048-TC; 80053-TC; 80076-TC; 81025-TC; 82150-TC; 83605; 83690-TC; 83735-TC; 85025-TC; 87230-TC; 90784; 90799; C9113; J0696; J1956; J2543; J3475; J7030; Z7502; Z7610